=== PATIENT | female | born 1940 | race Caucasian/White ===

== ENCOUNTER 2024-06-09 10:19 | Emergency (ER) | payer MEDICARE, SELFPAY ==
[2024-06-09] VITALS (8 sets, daily range): BP systolic 136–193; BP diastolic 53–84; PULSE 67–95; RESP 15–16; TEMP 36.5–36.9; O2SAT 95–99; BMI 40.4
--- NOTE | 2024-06-09 10:44 | ECG_ITS ---
Test Reason : dizziness Blood Pressure : */* mmHG Vent. Rate : 70 BPM Atrial Rate : 70 BPM P-R Int : 144 ms QRS Dur : 96 ms QT Int : 400 ms P-R-T Axes : 24 -29 25 degrees QTcB Int : 432 ms Artifact in tracing Normal sinus rhythm Normal ECG No previous ECGs available Referred By: Generic ED Physician Electronically Signed By: ROBERTO TOUSSAINT
[2024-06-09] MEDS: Ondansetron ODT 4 MG TAB.RAPDIS TRANSLINGU (10:46)
[2024-06-09 11:12] LABS: MANUAL DIFF FLAG NO
[2024-06-09 11:15] LABS: Basophils Absolute Auto 0.1 X10*3/uL (0.0-0.2); Basophils Percent Auto 0.5 % (0-2); Eosinophils Absolute Auto 0.1 X10*3/uL (0.0-0.4); Hematocrit 40.2 % (37.0-47.0); Hemoglobin 12.6 g/dl (12.0-16.0); Imm Gran Abs Auto 0.07 X10*3/uL (0.00-0.03); Imm Gran Pct Auto 0.7 % (0.0-0.4); Lymphocytes Absolute Auto 1.1 X10*3/uL (1.2-4.9); Lymphocytes Percent Auto 10.9 % (20-40); Mean Corpuscular HGB Conc 31.3 g/dl (31.0-35.0); Mean Corpuscular Hemoglobin 25.5 pg (27.0-33.0); Mean Corpuscular Volume 81.2 fL (80.0-98.0); Mean Platelet Volume 11.2 fL (9.4-12.3); Monocytes Absolute Auto 0.6 X10*3/uL (0.1-1.2); Monocytes Percent Auto 5.5 % (2-11); Neutrophils Absolute Auto 8.5 x10*3/uL (2.0-8.3); Neutrophils Percent Auto 81.4 % (45-73); Platelet Count 201 X10*3/uL (160-400); Red Blood Count 4.95 X10*6/uL (4.20-5.50); Red Cell Distribution Width 15.4 % (11.0-16.0); White Blood Count 10.4 X10*3/uL (4.8-10.8)
[2024-06-09 11:29] LABS: Alanine Aminotransferase 16 U/L (0-31); Albumin Level 4.2 g/dL (3.5-5.0); Alkaline Phosphatase 127 U/L (39-117); Anion Gap 12 (12-20); Aspartate Amino Transferase 21 U/L (5-31); Bilirubin Direct 0.2 mg/dL (0.0-0.5); Bilirubin Total 0.4 mg/dL (0.0-1.0); Blood Urea Nitrogen 35 mg/dL (9-16); Calcium 9.5 mg/dL (8.4-10.2); Carbon Dioxide 20 mmol/L (22-29); Chloride 114 mmol/L (96-108); Creatinine Clr Calc Pharmacy 33.2; Estimated Glomerular Filt Rate 56; Glucose Random 193 mg/dL (60-115); Lipase 26 U/L (8-78); Potassium 4.7 mmol/L (3.3-5.1); Sodium 141 mmol/L (135-145); Total Protein 7.5 g/dL (6.5-8.0)
[2024-06-09 12:14] LABS: Influenza A PCR NEGATIVE (Negative); Influenza B PCR NEGATIVE (Negative); Resp Syncy Virus RNA Qual PCR NEGATIVE (Negative); SARS COV2 PCR INHOUSE NEGATIVE (Negative)
--- NOTE | 2024-06-09 12:34 | ED_ITS ---
HPI - Nausea/Vomiting/Diarrhea General Chief complaint: Nausea/Vomiting/Diarrhea Stated complaint: Vomiting, diarrhea, dizziness Time Seen by Provider: 06/09/24 12:33 Source: patient and RN notes reviewed Mode of arrival: ambulatory Limitations: no limitations History of Present Illness ED Provider: Yanet Ramon PA-C HPI Narrative: This is a 84-year-old female, with a past medical history of type 2 diabetes, hypertension, hyperlipidemia, who presents emergency department for evaluation of acute onset nausea, vomiting, diarrhea since last night. She reports that she has had dizziness since this morning. She states that she has had many episodes of vomiting and diarrhea. Denies any bloody or black stool. No hemoptysis. She was given Zofran in triage in his feeling much better. She does report dizziness, worsening with positional changes. Denies any chest pain or shortness of breath. No abdominal pain. No urinary symptoms. No sick contacts however states that she was at her doctor's office on Thursday and is unsure if she picked up a virus then. No other complaints or concerns at this time. MD elicited complaint: nausea and vomiting Related Data Previous Rx's ?Medication ?Instructions ?Recorded ondansetron 4 mg disintegrating 4 mg PO Q6H PRN nausea and 06/09/24 tablet vomiting #10 tabs Allergies Allergy/AdvReac Type Severity Reaction Status Date / Time No Known Allergies Allergy Verified 06/09/24 10:43 Review of Systems 2 Review of Systems: Yes all other systems are reviewed and are negative Constitutional: Constitutional: Reports as per HPI [facility] Social History Social History Smoked in Last 30 Days: No Use of substances other than those prescribed or required for medical reasons: No Advance Directives: No Advance Directives Information Provided: Yes Physical Exam 2 Vital Signs: Vital Signs: Last Vital Signs Temp 97.9 F 06/09/24 18:33 Pulse 67 06/09/24 18:33 Resp 15 06/09/24 18:33 BP 136/53 L 06/09/24 18:33 Pulse Ox 99 06/09/24 18:33 O2 Del Method Room Air 06/09/24 18:33 BMI result Body Mass Index 40.4 Const: General: cooperative, comfortable and no acute distress O rientation/consciousness: patient oriented x3 Limitations: no limitations HEENT: Head: Yes normal to inspection, Yes normocephalic and Yes atraumatic Ears: hearing grossly normal bilaterally General nose exam: Normal external nose present Face and sinus: Yes normal facial exam Mouth: Normal oral and palatal mucosa present, oropharynx normal and moist mucous membranes Throat: Yes posterior oropharynx normal Eyes: General: appearance normal, both eyes and all related structures E yelids: Yes eyelids normal Conjunctivae: conjunctivae normal Sclerae: s clerae normal Pupils: Equal, round and reactive pupils present EOM: EOMs intact bilaterally Neck: Neck: Yes normal visual inspection, Yes full ROM and Yes no lymphadenopathy Lymphatic: no lymphadenopathy noted Chest: Chest palpation & inspection: normal inspection of the chest Resp: Effort & Inspection: normal respiratory effort and able to speak in complete sentences Auscultation: clear to auscultation bilaterally, no crackles, no rales, no rhonchi and no wheezes Cardio: Rate: regular rate Rhythm: regular rhythm Heart sounds: S1 normal heart sound present and S2 normal heart sound present GI: Other: Abdomen is soft, nontender, nondistended Inspection: Yes normal to inspection Skin: General skin exam: no rashes or lesions noted Trauma: no lacerations or abrasions Wounds: no wounds Neuro: General: patient oriented x3 and moves all extremities Cranial nerves: Yes Equal, round and reactive pupils present Extrem: General: Yes normal to inspection Right upper extremity: normal to inspection Left upper extremity: normal to inspection Right lower extremity: normal to inspection Left lower extremity: normal to inspection Course Reevaluation(s) Reevaluation #1: Troponin increased from 12-38.8. Patient feeling much better, no longer having any dizziness at this time. Given increase in troponin, will have to repeat. She has not had any chest pain or shortness of breath. Time: 16:28 Reevaluation #2: Third troponin flat at 39.3. She remains to be asymptomatic, feeling well. Discussed with Dr. Barrios, elevated troponins likely demand. Patient is feeling well, eager for discharge. She is asymptomatic, no longer dizzy, nauseous or vomiting. Discussed overall workup with patient and son at bedside. Given strict return precautions. They understand and agree with plan. Patient stable for discharge. Time: 18:31 Medications Administered Discontinued Medications Generic Name Dose Route Start Last Admin Trade Name Freq PRN Reason Stop Dose Admin Lactated Ringer's 1,000 mls @ 999 mls/hr 06/09/24 12:46 06/09/24 15:53 Lr IV 06/09/24 13:46 Infused .Q1H1M ONE Infusion Ondansetron HCl 4 mg 06/09/24 10:44 06/09/24 10:46 Ondansetron Odt 4 Mg Tab.Salena JONSA 06/09/24 10:45 4 mg ONCE ONE Administration Medical Decision Making Medical Decision Making MDM Narrative: This is a 84-year-old female, with a history of hypertension, hyperlipidemia, and diabetes, who presents emergency department for evaluation of acute onset nausea, vomiting, diarrhea since last night. On arrival, blood pressure mildly elevated at 170 2/75, all other vital signs within normal limits. She is speaking full sentences under no acute distress. She is neurologically intact. Abdomen is soft and nontender. Patient was given Zofran in triage in his feeling much better. She does report that she still has dizziness, worsening with positional changes. Labs returned, she has no leukocytosis, H&H stable. BUN elevated at 35, creatinine 0.95 > likely secondary to dehydration. mild hyperglycemia at 193. She has no urinary symptoms. Viral swabs negative. Symptoms likely secondary to a viral gastroenteritis. Will perform orthostatic vitals, also administer IV fluids. We will continue to closely monitor pending re-evaluation. Differential Diagnosis Differential Diagnoses: The differential diagnosis associated with the presentation includes Viral gastroenteritis, gastritis, electrolyte derangement, COVID, flu Admission/Observation Consideration of admission/observation: Escalation of care including admission/observation considered Lab Data [facility] Lab Attestation statement: I reviewed the patient's lab results. See MDM and course 06/09/24 11:07 06/09/24 11:07 Labs: Lab Results 06/09/24 06/09/24 06/09/24 Range/Units 11:07 11:08 15:38 WBC 10.4 (4.8-10.8) X10*3/uL RBC 4.95 (4.20-5.50) X10*6/uL Hgb 12.6 (12.0-16.0) g/dl Hct 40.2 (37.0-47.0) % MCV 81.2 (80.0-98.0) fL MCH 25.5 L (27.0-33.0) pg MCHC 31.3 (31.0-35.0) g/dl RDW 15.4 (11.0-16.0) % Plt Count 201 (160-400) X10*3/uL MPV 11.2 (9.4-12.3) fL Immature Gran % (Auto) 0.7 H (0.0-0.4) % Neut % (Auto) 81.4 H (45-73) % Lymph % (Auto) 10.9 L (20-40) % Clayton % (Auto) 5.5 (2-11) % Eos % (Auto) 1.0 (0-4) % Baso % (Auto) 0.5 (0-2) % Lymph # (Auto) 1.1 L (1.2-4.9) X10*3/uL Clayton # (Auto) 0.6 (0.1-1.2) X10*3/uL Eos # (Auto) 0.1 (0.0-0.4) X10*3/uL Baso # (Auto) 0.1 (0.0-0.2) X10*3/uL Abs Immat Gran (auto) 0.07 H (0.00-0.03) X10*3/uL Absolute Neuts (auto) 8.5 H (2.0-8.3) x10*3/uL Absolute Nucleated RBC 0.000 (0.0-0.012) X10*3/uL Nucleated RBC % (auto) 0.0 (0.0-0.2) /100WBC Sodium 141 (135-145) mmol/L Potassium 4.7 (3.3-5.1) mmol/L Chloride 114 H (96-108) mmol/L Carbon Dioxide 20 L (22-29) mmol/L Anion Gap 12 (12-20) BUN 35 H (9-16) mg/dL Creatinine 0.95 (0.5-1.4) mg/dL Estim Creat Clear Calc 33.2 Estimated GFR 56 Random Glucose 193 H (60-115) mg/dL Calcium 9.5 (8.4-10.2) mg/dL Total Bilirubin 0.4 (0.0-1.0) mg/dL Direct Bilirubin 0.2 (0.0-0.5) mg/dL AST 21 (5-31) U/L ALT 16 (0-31) U/L Alkaline Phosphatase 127 H (39-117) U/L Troponin I High Sens 12.0 38.8 H D (<3.5-17.0) ng/L Total Protein 7.5 (6.5-8.0) g/dL Albumin 4.2 (3.5-5.0) g/dL Lipase 26 (8-78) U/L Influenza Type A (PCR) NEGATIVE (Negative) Influenza Type B (PCR) NEGATIVE (Negative) RSV RNA Qual (PCR) NEGATIVE (Negative) SARS-CoV-2 RNA (RT-PCR) NEGATIVE (Negative) 06/09/24 Range/Units 17:50 WBC (4.8-10.8) X10*3/uL RBC (4.20-5.50) X10*6/uL Hgb (12.0-16.0) g/dl Hct (37.0-47.0) % MCV (80.0-98.0) fL MCH (27.0-33.0) pg MCHC (31.0-35.0) g/dl RDW (11.0-16.0) % Plt Count (160-400) X10*3/uL MPV (9.4-12.3) fL Immature Gran % (Auto) (0.0-0.4) % Neut % (Auto) (45-73) % Lymph % (Auto) (20-40) % Clayton % (Auto) (2-11) % Eos % (Auto) (0-4) % Baso % (Auto) (0-2) % Lymph # (Auto) (1.2-4.9) X10*3/uL Clayton # (Auto) (0.1-1.2) X10*3/uL Eos # (Auto) (0.0-0.4) X10*3/uL Baso # (Auto) (0.0-0.2) X10*3/uL Abs Immat Gran (auto) (0.00-0.03) X10*3/uL Absolute Neuts (auto) (2.0-8.3) x10*3/uL Absolute Nucleated RBC (0.0-0.012) X10*3/uL Nucleated RBC % (auto) (0.0-0.2) /100WBC Sodium (135-145) mmol/L Potassium (3.3-5.1) mmol/L Chloride (96-108) mmol/L Carbon Dioxide (22-29) mmol/L Anion Gap (12-20) BUN (9-16) mg/dL Creatinine (0.5-1.4) mg/dL Estim Creat Clear Calc Estimated GFR Random Glucose (60-115) mg/dL Calcium (8.4-10.2) mg/dL Total Bilirubin (0.0-1.0) mg/dL Direct Bilirubin (0.0-0.5) mg/dL AST (5-31) U/L ALT (0-31) U/L Alkaline Phosphatase (39-117) U/L Troponin I High Sens 39.3 H (<3.5-17.0) ng/L Total Protein (6.5-8.0) g/dL Albumin (3.5-5.0) g/dL Lipase (8-78) U/L Influenza Type A (PCR) (Negative) Influenza Type B (PCR) (Negative) RSV RNA Qual (PCR) (Negative) SARS-CoV-2 RNA (RT-PCR) (Negative) Independent Interpretation I performed an independent interpretation of an: EKG Interpretation: Normal sinus rhythm at a ventricular rate of 70 beats per minute, SC interval 144, QRS 96, QT QTC 400/432, no ST elevation or depression. Discharge Plan Discharge Clinical Impression: Nausea & vomiting Patient Disposition: Home, Self-Care Instructions: Acute Nausea and Vomiting (ED) Additional Instructions: You were seen in the emergency department due to nausea, vomiting and diarrhea. You likely have a virus causing you to have the symptoms. Your workup today was reassuring. We had given you a medication called Zofran which helps with nausea, as well as IV fluids. Your symptoms have resolved while in the emergency room today. You had elevated troponin levels, which can be concerning for a heart condition like a heart attack however this can also be elevated due to dehydration/vomiting/diarrhea. It is very important that you continue to stay well hydrated. Avoid spicy or fried foods. If any new or worsening symptoms occur including but not limited to chest pain, shortness of breath, dizziness, please seek emergent care. Please follow-up with your primary care physician regarding this visit. I am also prescribing Zofran, this is the medication that was given to you in the emergency department. Take only as needed for nausea and or vomiting. Prescriptions: New ondansetron 4 mg tablet,disintegrating 4 mg PO Q6H PRN (Reason: nausea and vomiting) Qty: 10 0RF Print Language: Maori
--- NOTE | 2024-06-09 13:05 | MHC.EDTECH ---
HOURLY ROUNDS AND VITAL COMPLETED, PATIENT FELT VERY DIZZY WHEN SHE STOOD UP FOR THE ORTH VITALS.
[2024-06-09] MEDS: Lactated Ringers 1,000 ML 999 ML IV (13:58)
[2024-06-09 16:07] LABS: Troponin-I High Sensitivity 38.8 ng/L (<3.5-17.0)
--- NOTE | 2024-06-09 16:22 | ECG_ITS ---
Test Reason : ELEVATED TROPONIN Blood Pressure : */* mmHG Vent. Rate : 66 BPM Atrial Rate : 66 BPM P-R Int : 136 ms QRS Dur : 92 ms QT Int : 388 ms P-R-T Axes : 34 -32 17 degrees QTcB Int : 406 ms Artifact in tracing n Normal sinus rhythm Left axis deviation Nonspecific ST abnormality Borderline ECG When compared with ECG of 09-Jun-2024 11:01, No significant change was found Referred By: Yanet Ramon Electronically Signed By: ROBRETO TOUSSAINT
--- NOTE | 2024-06-09 16:55 | ECG_ITS ---
Test Reason : REPEAT EKG Blood Pressure : */* mmHG Vent. Rate : 71 BPM Atrial Rate : 71 BPM P-R Int : 140 ms QRS Dur : 92 ms QT Int : 426 ms P-R-T Axes : 32 -32 14 degrees QTcB Int : 462 ms Normal sinus rhythm with sinus arrhythmia Left axis deviation Abnormal ECG When compared with ECG of 09-Jun-2024 16:33, QT has lengthened Referred By: Yanet Ramon Electronically Signed By: ROBERTO TOUSSAINT
--- OUTSIDE RECORDS SUMMARY | 2024-06-09 17:05 | XMS_ITS ---
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 Plan: * Treatment: 2.?Others? Start Meclizine HCl Tablet, 12.5 MG, 1 tablet as needed, Orally, thrice daily, 14 days, 60.?? * Procedure Codes:? * Follow Up:?6 Months * Billing Information: * Visit Code:? 14963 Office Visit, Est Pt., Level 4. * Procedure Codes:? * Sign off status: Completed true * Provider:?Berny Amador MD Date:?2022 Generated for July garcia/Bernice/Caseyitting on:?06/09/2024 05:05 PM EST History and Physical Notes * HPI (History of Present Illness) Category Sub-Category Detail Notes Category Notes Constitutional 01/29/23 Came with Ankita (social media job titles)Seen after a year. Looking well. State the knee gel injections helped her pain Given last year from [facility] at [address] [place] Has bladder urgency and hesitancy . Saw cocoa powder mixer operator at [facility] in . No change in meds . Meds reviewed and reonciled . No new complaints voiced 07/31/22 Medications reviewed and reconciled Rivera Cindy RAMIREZ for pain management in may. having shots today for her right. had injections in left in the past that is improved but right is more bothersome now. Urology CLARK Hadley june f.u this month. bladder training. urologist did test to check for tumors and all negative stable. urine negative for malignant cells. Cardiology Dr Cano [facility]. no changes in meds last march. per note f/u 3 months. pt brought in EKG completed at cardiology 06/17/22. no changes in medications. Blood sugars at home have been 134 and below. breakfast Palestinian toast Notes occasional headache. once in a while. 01/06/22 Came with friend Ankita (social media job titles) Had US to evaluate left lower abdominal discomfort Showed fatty liver and cholelithiases. Her main issue today is difficulty in voiding and was supposed to see the urologist. She goes to the pain clinic and fel the ant groin pain is related to her hip disorder. 12/20/21 Medications reviewed and reconciled Finished the medications today and still has the same discomfort. U/S needs to be rescheduled due to miscommunication with NPO Pt also complains of back pain . had injections through [facility] pain [facility] last year in october, she has not seen them since. no weakness in legs, no loss of reflexes but pain back to what it was before she had the injection. has the card but has not called them, was advised to call 01/2021 for repeat injection 12/13/21 Medications reviewed and reconciled. here with friend Reymundo Has a feeling she needs to urinate, feels she needs to force it out. pressure/discomfort in lower left abdomen. has been going on for a month but she did not pay attention. 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 01/06/22 Came with friend Ankita (social media job titles) Had US to evaluate left lower abdominal discomfort Showed fatty liver and cholelithiases. Her main issue today is difficulty in voiding and was supposed to see the urologist. She goes to the pain clinic and fel the ant groin pain is related to her hip disorder. 12/20/21 Medications reviewed and reconciled Finished the medications today and still has the same discomfort. U/S needs to be rescheduled due to miscommunication with NPO Pt also complains of back pain . had injections through [facility] pain management last year in october, she has not seen them since. no weakness in legs, no loss of reflexes but pain back to what it was before she had the injection. has the card but has not called them, was advised to call 01/2021 for repeat injection 12/13/21 Medications reviewed and reconciled. here with friend Reymundo Has a feeling she needs to urinate, feels she needs to force it out. pressure/discomfort in lower left abdomen. has been going on for a month but she did not pay attention. 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 01/06/22 Came with friend Ankita (social media job titles) Had US to evaluate left lower abdominal discomfort Showed fatty liver and cholelithiases. Her main issue today is difficulty in voiding and was supposed to see the urologist. She goes to the pain clinic and fel the ant groin pain is related to her hip disorder. 12/20/21 Medications reviewed and reconciled Finished the medications today and still has the same discomfort. U/S needs to be rescheduled due to miscommunication with NPO Pt also complains of back pain . had injections through [facility] management last year in october, she has not seen them since. no weakness in legs, no loss of reflexes but pain back to what it was before she had the injection. has the card but has not called them, was advised to call 01/2021 for repeat injection 12/13/21 Medications reviewed and reconciled. here with friend Reymundo Has a feeling she needs to urinate, feels she needs to force it out. pressure/discomfort in lower left abdomen. has been going on for a month but she did not pay attention. 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 Isolation Precautions Respiratory Illness Screening 1. Is fever present / reported?: Yes ?1a. Temperature:: 100.8 ?1b. Unit of Measure:: Fahrenheit 2. Are respiratory illness symptom(s) pr esent / reported?: Yes ?2a. Cough?: Yes ?2b. Shortness of Breath?: No ?2c. Sore throat / Pharyngitis?: Yes 3. Are other symptom(s) present / report ed?: Yes 4. Symptom Onset Date (If known):: 02/04 5. Has there been reported t ravel to a High Risk respiratory illness region?: No 6. Has close* contact with tanya gold(s) known to have communicable illness been reported?: No 7. Did travel or close conta ct (if applicable) occur within 14 days of symptom onset?: No Examination Category Sub-Category Detail Notes Category Not es General Examination GENERAL APPEARANCE: in no ac arvind distress, well developed, well nourished HEAD: normocephalic, atrau matic EYES: pupils equal, round, reactive to light and accommodation EARS: normal THROAT: clear NECK/THYROID: neck supple, full ra nge of motion, no cervical lymphadenopathy HEART: no murmurs, regular rate and rhythm, S1, S2 normal LUNGS: clear to auscultatio n bilaterally ABDOMEN: normal, bowel sounds present, soft, nontender, nondistended NEUROLOGIC: nonfocal, motor stre ngth normal upper and lower extremities, sensory exam intact SKIN: no suspicious lesion s, warm and dry EXTREMITIES: no clubbing, cyanosi s, or edema ORAL CAVITY: mucosa moist
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
--- OUTSIDE RECORDS SUMMARY | 2024-06-09 17:06 | XMS_ITS ---
Author Organization [facility] Address [address] [place] [address] Care Team Providers Care Vice President Of Contracts Name Role Phone LIBBY WINN Primary Care Provider REASON FOR VISIT refill Medications Medication SIG (Take, Route, Fr equency, Duration) Notes Start Date End Date Status metFORMIN HCl 500 MG TAKE 1 TABLET BY MO UTH TWICE A DAY WITH MEALS for 90 days Activ e Encounters Encounter Location Date Provider Diagnosis [facility] [address] [place] [address] 03/07/2023 LIBBY WINN Plan Of Treatment Medication Medication Name Sig Start Date Stop Date Notes metFORMIN HCl 500 MG TAKE 1 TABLET BY MO UTH TWICE A DAY WITH MEALS for 90 days Progress Notes * Sherrie BINGHAM HDOB:1940 (83 yo F)Acc No.[id number]:03/07/2023 Patient:?Sherrie Bingham :1940???Age:83 Y???Sex:Female Address:[address] [place] [address], [address] * Refills? Refill metFORMIN HCl Tablet, 500 MG, 180 Tablet, TAKE 1 TABLET BY MOUTH TWICE A DAY WITH MEALS, 90 days, Refills=2 * true * Date:? Generated for July garcia/Bernice/eTransmitting on:?06/09/2024 05:06 PM EST
--- OUTSIDE RECORDS SUMMARY | 2024-06-09 17:06 | XMS_ITS | Clinical Summary ---
Author Organization [facility] Address [address] [place] [address] Care Team Providers Care City Secretary Name Role Phone Berny Amador MD Primary Care Provider [phone] Allergies No known active allergies Medications Medication Sig Dispensed Refills Start Date End Date Status amLODIPine-benazepri l (LOTREL) 10-20 MG per capsule Take 1 capsule by mouth daily. 0 Active aspirin (Aspirin 81) 81 MG chewable tablet 1 tablet 0 Active atorvastatin (LIPITOR) tablet 40 mg Take 1 tablet by mouth daily. 0 Active clopidogrel (PLAVIX) 75 MG tablet 1 tablet 0 Active clotrimazole-betamet hasone (LOTRISONE) cream 1 application to affected area 0 01/31/2020 Active dapagliflozin propanediol (Farxiga) 5 MG tablet 1 tablet 0 Active gabapentin (NEURONTIN) 300 MG capsule 0 02/18/2021 Active hydrOXYzine (ATARAX) 25 MG tablet 1 tablet as needed 0 Acti ve lisinopril-hydroCHLO ROthiazide (PRINZIDE,ZESTORETIC ) tablet 20-25 mg Take 1 tablet by mouth daily. 0 Active meclizine (ANTIVERT) 25 MG tablet TAKE 1 TABLET NEEDED EVERY 8 HOURS NEEDED FOR 10 DAYS 0 Active metFORMIN (GLUCOPHAGE) tablet 500 mg 1 tablet with meals 0 11/19/2020 Activ e oxyCODONE-acetaminop hen (PERCOCET) 5-325 MG per tablet 0 02/11/2021 Active pioglitazone (ACTOS) tablet 15 mg Take 1 tablet by mouth daily. 0 Active pravastatin (PRAVACHOL) tablet 20 mg Take 1 tablet by mouth daily. 0 Active sertraline (ZOLOFT) 50 MG tablet Take 1 tablet by mouth daily. 0 Active ticagrelor (Brilinta) 90 MG TABS tablet 1 tablet 0 Active Active Problems Problem Noted Date Diagnosed Date Acute eczematoid otitis externa 03/08/2021 Age-related cataract 03/08/2021 Anemia 03/08/2021 Ankle edema 03/08/2021 Aortic valve disorder 03/08/2021 Benign paroxysmal positional vertigo 03/08/2021 Chronic diastolic heart failure 03/08/2021 Chronic pain 03/08/2021 History of colonoscopy 03/08/2021 Encounter for general adult medical examination without abnormal findings 03/08/2021 Erythema nodosum 03/08/2021 Essential hypertension 03/08/2021 Generalized anxiety disorder 03/08/2021 Hyperlipidemia 03/08/2021 Hypertension due to endocrine disorder Hypoalbuminemia 03/08/2021 Impacted cerumen 03/08/2021 Leukocytosis 03/08/2021 Lumbar spondylosis with myelopathy 03/08/2021 Migraine 03/08/2021 Nephropathy due to secondary diabetes mellitus 1 Osteoarthritis of knee 03/08/2021 Pain in joint involving pelvic region and thigh 03/08/2021 Peripheral venous insufficiency 03/08/2021 Presence of prosthetic heart valve 03/08/2021 Pure hypercholesterolemia 03/08/2021 Stress incontinence in female 03/08/2021 Social History Tobacco Use Types Packs/Day Years Used Date Smoking Tobacco: Never Smokeless Tobacco: Never Alcohol Use Standard Drinks/Week Comments Not Currently 0 (1 standard drink = 0.6 oz pur e alcohol) Sex and Gender Information Value Date Recorded Sex Assigned at Not on file Gender Identity Not on file Sexual Orientation Not on file Last Filed Vital Signs Vital Sign Reading Time Taken Comments Blood Pressure 137/60 03/08/2021 2:49 PM EDT Pulse 80 03/08/2021 2:49 PM EDT Temperature 36.5 ??C (97.7 ??F) 03/08/2021 2:49 PM ED T Respiratory Rate - - Oxygen Saturation 98% 03/08/2021 2:49 PM EDT Inhaled Oxygen Concentration - - Weight 82.1 kg (181 lb) 03/08/2021 2:49 PM EDT Height 147.3 cm (4' 10 ) 03/08/2021 2:49 PM EDT Body Mass Index 37.83 03/08/2021 2:49 PM EDT Plan of Treatment Health Maintenance Due Date Last Done Comments COVID-19 Vaccine (#1) 1940 Pneumococcal Vaccine (1 of 2 - PCV) 02/02/1944 Depression Screening 1950 Preventative Health Evaluation 02/02/1956 DTap / Tdap / Td (1 - Tdap) 1957 Shingrix-Zoster Vaccine (1 of 2) 02/02/1988 Fall Risk Assessment 2003 Osteoporosis Screening (DEXA Scan) 2003 RSV Adult > 60+ Yrs or Pregn ant (1 - 1-dose 75+ series) 2013 Influenza Vaccine (#1) 2024 Hepatitis B Vaccines Aged Out No long er eligible based on patient's age to complete this topic RSV Ped < 20 months Aged Out No longe r eligible based on patient's age to complete this topic Care Teams City Secretary Relationship Specialty Start Date End Date Berny Amador MD PCP - General Internal Medicine 03/01/21
[2024-06-09 18:16] LABS: Troponin-I High Sensitivity 39.3 ng/L (<3.5-17.0)
== END 2024-06-09 18:58 | disposition home or self-care (01) ==
PROVIDERS: Physician Assistant Medical; Emergency Provider Emergency Medicine; PCP Internal Medicine
DX: R11.2 Nausea with vomiting, unspecified (principal); R42 Dizziness and giddiness; E11.9 Type 2 diabetes mellitus without complications; I10 Essential (primary) hypertension; E78.5 Hyperlipidemia, unspecified; Z03.818 Encounter for observation for suspected exposure to other biological agents ruled out
CPT/HCPCS: 0241U; 36415; 80048; 80076; 83690; 84484; 85025; 93005; 96360; 96361; 99284; 99285; J7120

== ENCOUNTER → 2024-06-09 10:44 | Outpatient (BNV) | payer MEDICARE, SELFPAY | PROVIDERS: Emergency Provider Emergency Medicine; PCP Internal Medicine; Visit Provider Internal Medicine | DX: R79.89 Other specified abnormal findings of blood chemistry (principal) | CPT/HCPCS: 93010 ==